=== PATIENT | female | born 1940 | race Caucasian/White ===

== ENCOUNTER 2019-06-21 21:17 | Inpatient (IN) ==
[2019-06-21] MEDS ORDERED: 0.9 % Sodium Chloride 1,000 ML IVC ONE (21:23)
[2019-06-21] MEDS ORDERED: Acetaminophen 325 MG TABLET PO ONE (21:40)
[2019-06-21 21:49] LABS: Basophils % 0.1 %; Eosinophils % 0.4 %; Hematocrit 47.2 % (35.3-44.9); Hemoglobin 15.2 g/dL (11.5-15.4); Immature Granulocytes % 0.6 % (0-4); Lymphocytes # 0.2 K/mcL (0.6-4.6); Lymphocytes % 1.7 %; Mean Corpuscular HGB Conc 32.2 g/dL (31.6-35.5); Mean Corpuscular Hemoglobin 29.3 pg (28.0-33.3); Mean Corpuscular Volume 91.1 fL (83.0-100.0); Mean Platelet Volume 9.8 fL (9.4-12.4); Monocytes # 0.3 K/mcL (0.0-1.3); Monocytes % 3.3 %; Neutrophils # 9.4 K/mcL (1.6-8.9); Platelet Count 136 K/mcL (140-400); Red Blood Count 5.18 M/mcL (3.82-4.97); Red Cell Distribution Width 13.2 % (11.5-14.5); Segmented Neutrophils % 93.9 %
[2019-06-21 21:51] LABS: Bilirubin,Urine Negative (Negative); Blood,Urine Negative (Negative); Clarity,Urine Clear (Clear); Color,Urine Yellow (Yellow); Glucose,Urine (UA) Normal (Normal); Ketones,Urine 15 mg/dL (Negative); Leukocyte Esterase,Urine Moderate (Negative); Nitrite,Urine Negative (Negative); Protein,Urine Negative (Neg-Trace); Specific Gravity,Urine 1.012 (1.010-1.025); Urobilinogen,Urine Normal (Normal)
[2019-06-21 21:52] LABS: Bacteria,Urine None Seen per hpf (None-Few); Hyaline Casts,Urine None Seen per lpf (None-Few); RBC,Urine 0-3 per hpf (0-3); Squamous Epithelial Cell,Urine Many per lpf (None-Few); WBC,Urine 30-50 per hpf (0-3)
[2019-06-21 21:53] LABS: INR 1.1; Prothrombin Time 12.9 Seconds (9.4-12.1)
[2019-06-21 21:56] LABS: Activated Partial Thrombo Time 25.4 Seconds (26.0-36.0)
[2019-06-21] MEDS ORDERED: Piperacillin/Tazobactam 3.375 GM in 0.9 % Sodium Chloride Mini Bag 100 ML IVPB ONE (22:05)
[2019-06-21 22:14] LABS: Alanine Aminotransferase 69 Units/L (7-52); Albumin 4.3 g/dL (3.5-5.7); Albumin/Globulin Ratio 1.7 (1.1-2.2); Alkaline Phosphatase 93 Units/L (34-104); Aspartate Amino Transferase 70 Units/L (13-39); BUN/Creatinine Ratio 13 (6-26); Bilirubin,Direct 0.2 mg/dL (0.0-0.2); Bilirubin,Indirect 0.7 mg/dL (0.0-1.0); Bilirubin,Total 0.9 mg/dL (0.3-1.0); Blood Urea Nitrogen 12 mg/dL (8-23); Calcium 9.6 mg/dL (8.6-10.3); Carbon Dioxide 25 mEq/L (23-29); Chloride 103 mEq/L (98-107); Globulin 2.5 g/dL (2.4-3.5); Glucose 171 mg/dL (70-105); Magnesium 1.6 mg/dL (1.6-2.6); Osmolality,Calculated 296 (280-300); Phosphorous < 1.0 mg/dL (2.7-4.5); Potassium 3.6 mEq/L (3.5-5.1); Sodium 141 mEq/L (136-145); Total Protein 6.8 g/dL (6.4-8.9); Troponin I < 0.03 ng/mL (< 0.04); eGFR For African Americans > 60 (> 60); eGFR For Non-African Americans 57 (> 60)
[2019-06-21] MEDS: 0.9 % Sodium Chloride 1,000 ML IVC SCH (22:16)
[2019-06-21 22:22] LABS: Platelet Estimate Normal (Normal)
[2019-06-21] MEDS ORDERED: cloNIDine HCL 0.1 MG TABLET PO ONE (22:31)
[2019-06-21] MEDS: atenoloL 50 MG TABLET PO SCH (22:40)
[2019-06-21] MEDS ORDERED: Furosemide 40 MG/4 ML VIAL IVP ONE (22:43)
[2019-06-21 22:48] LABS: ABG Base Excess -4 mEq/L (-2 to 3); ABG HCO3 22 mEq/L (21-27); ABG Oxygen Saturation 92 % (95-98); ABG PCO2 38 mmHg (35-45); ABG PH 7.36 pH Units (7.32-7.45); ABG PO2 65 mmHg (85-104); ABG TCO2 23 mEq/L (20-26)
[2019-06-21] MEDS ORDERED: Potassium Phosphate 44 MEQ in 0.9 % Sodium Chloride 250 ML IVPB ONE (23:14)
[2019-06-21] MEDS ORDERED: Isovue-370 500 ML BOTTLE IVP ONE ×2 (23:17→23:40)
[2019-06-22] MEDS ORDERED: *HR* Labetalol 20 MG/4 ML SYRINGE IVP ONE (00:13)
[2019-06-22] MEDS ORDERED: Naloxone 0.4 MG/ML INJ IVP PRN (00:22)
[2019-06-22] MEDS: *HR* Labetalol 20 MG/4 ML SYRINGE IVP PRN ×2 (00:39→06:00)
[2019-06-22 01:37] LABS: Basophils % 0.1 %; Eosinophils # 0.1 K/mcL (0.0-0.6); Eosinophils % 0.5 %; Hematocrit 47.6 % (35.3-44.9); Hemoglobin 15.3 g/dL (11.5-15.4); Immature Granulocytes % 0.7 % (0-4); Lymphocytes # 0.3 K/mcL (0.6-4.6); Lymphocytes % 1.9 %; Mean Corpuscular HGB Conc 32.1 g/dL (31.6-35.5); Mean Corpuscular Hemoglobin 29.1 pg (28.0-33.3); Mean Corpuscular Volume 90.5 fL (83.0-100.0); Mean Platelet Volume 9.5 fL (9.4-12.4); Monocytes # 0.6 K/mcL (0.0-1.3); Monocytes % 4.4 %; Neutrophils # 11.9 K/mcL (1.6-8.9); Platelet Count 151 K/mcL (140-400); Red Blood Count 5.26 M/mcL (3.82-4.97); Red Cell Distribution Width 13.2 % (11.5-14.5); Segmented Neutrophils % 92.4 %; White Blood Count 12.9 K/mcL (4.3-11.1)
[2019-06-22 01:38] LABS: INR 1.2; Prothrombin Time 13.6 Seconds (9.4-12.1)
[2019-06-22 01:41] LABS: Activated Partial Thrombo Time 29.3 Seconds (26.0-36.0)
[2019-06-22 01:51] LABS: Alanine Aminotransferase 73 Units/L (7-52); Albumin 4.1 g/dL (3.5-5.7); Albumin/Globulin Ratio 1.6 (1.1-2.2); Alkaline Phosphatase 78 Units/L (34-104); Aspartate Amino Transferase 79 Units/L (13-39); BUN/Creatinine Ratio 12 (6-26); Bilirubin,Total 1.1 mg/dL (0.3-1.0); Blood Urea Nitrogen 12 mg/dL (8-23); Calcium 8.8 mg/dL (8.6-10.3); Carbon Dioxide 23 mEq/L (23-29); Chloride 100 mEq/L (98-107); Chol/HDL Ratio 4.7 (0-4.9); Cholesterol 189 mg/dL (< 200); Globulin 2.5 g/dL (2.4-3.5); Glucose 200 mg/dL (70-105); HDL Cholesterol 40 mg/dL (40-59); LDL Cholesterol,Calculated 109 mg/dL (0-99); Magnesium 1.4 mg/dL (1.6-2.6); Osmolality,Calculated 289 (280-300); Phosphorous 1.5 mg/dL (2.7-4.5); Potassium 2.8 mEq/L (3.5-5.1); Sodium 137 mEq/L (136-145); Total Protein 6.6 g/dL (6.4-8.9); Triglycerides 200 mg/dL (< 150); eGFR For African Americans > 60 (> 60); eGFR For Non-African Americans 56 (> 60)
[2019-06-22 01:52] LABS: Acetaminophen < 10 mcg/mL (10-20)
[2019-06-22 02:03] LABS: Estimated Average Glucose 131 mg/dl
[2019-06-22 02:05] LABS: Thyroid Stimulating Hormone 1.013 mcIU/mL (0.340-5.600)
[2019-06-22] MEDS ORDERED: 0.9 % Sodium Chloride 1,000 ML IVC SCH (02:15)
[2019-06-22] MEDS: 0.9 % Sodium Chloride 1,000 ML IVC SCH (02:19)
[2019-06-22 03:30] LABS: Hepatitis B Surface Antigen Nonreactive (Nonreactive)
[2019-06-22 03:58] LABS: Hepatitis B Core IgM Nonreactive (Nonreactive)
[2019-06-22 03:59] LABS: Hepatitis A Antibody IgM Nonreactive (Nonreactive); Hepatitis C Virus Antibody Nonreactive (Nonreactive)
[2019-06-22 05:43] LABS: VBG HCO3 25 mEq/L (21-27); VBG PCO2 56 mmHg (41-51); VBG PH 7.27 pH Units (7.32-7.42); VBG PO2 42 mmHg (25-50)
[2019-06-22] MEDS: *HR* Heparin 5,000 UNIT/ML VIAL SQ SCH ×2 (06:01→17:54)
[2019-06-22 06:43] LABS: Phosphorous 4.6 mg/dL (2.7-4.5)
[2019-06-22 06:45] LABS: BUN/Creatinine Ratio 11 (6-26); Blood Urea Nitrogen 11 mg/dL (8-23); Carbon Dioxide 24 mEq/L (23-29); Chloride 101 mEq/L (98-107); Glucose 202 mg/dL (70-105); Osmolality,Calculated 293 (280-300); Potassium 3.6 mEq/L (3.5-5.1); Sodium 139 mEq/L (136-145); eGFR For African Americans > 60 (> 60); eGFR For Non-African Americans 53 (> 60)
[2019-06-22] MEDS: atenoloL 50 MG TABLET PO SCH ×2 (07:58→20:04)
[2019-06-22] MEDS ORDERED: Piperacillin/Tazobactam 3.375 GM in 0.9 % Sodium Chloride Mini Bag 100 ML IVPB SCH (08:00)
[2019-06-22] MEDS: 0.9 % Sodium Chloride w KCl 20 MEQ/1,000 ML MLS IVC SCH ×2 (10:17→20:25)
[2019-06-22] MEDS ORDERED: Ondansetron 4 MG/2 ML VIAL IVP SCH (12:00)
[2019-06-22] MEDS ORDERED: Ondansetron 4 MG/2 ML VIAL IVP PRN (12:32)
[2019-06-22] MEDS: cefTRIAXone 1,000 MG in Water for inj. (sterile) 10 ML IVP SCH (12:36)
[2019-06-22] MEDS: cloNIDine HCL 0.1 MG TABLET PO SCH (13:58)
[2019-06-23] MEDS: cloNIDine HCL 0.1 MG TABLET PO SCH ×2 (01:14→11:50)
[2019-06-23] MEDS ORDERED: Ibuprofen 400 MG TABLET PO ONE (01:39)
[2019-06-23 05:40] LABS: Alanine Aminotransferase 55 Units/L (7-52); Albumin 3.4 g/dL (3.5-5.7); Albumin/Globulin Ratio 1.7 (1.1-2.2); Alkaline Phosphatase 56 Units/L (34-104); Aspartate Amino Transferase 40 Units/L (13-39); BUN/Creatinine Ratio 26 (6-26); Bilirubin,Direct 0.2 mg/dL (0.0-0.2); Bilirubin,Indirect 0.5 mg/dL (0.0-1.0); Bilirubin,Total 0.7 mg/dL (0.3-1.0); Blood Urea Nitrogen 20 mg/dL (8-23); Carbon Dioxide 25 mEq/L (23-29); Chloride 108 mEq/L (98-107); Glucose 122 mg/dL (70-105); Magnesium 1.9 mg/dL (1.6-2.6); Osmolality,Calculated 292 (280-300); Sodium 139 mEq/L (136-145); Total Protein 5.4 g/dL (6.4-8.9); eGFR For African Americans > 60 (> 60); eGFR For Non-African Americans > 60 (> 60)
[2019-06-23] MEDS: *HR* Heparin 5,000 UNIT/ML VIAL SQ SCH ×2 (06:15→17:40)
[2019-06-23 07:50] LABS: Basophils % 0.1 %; Eosinophils # 0.6 K/mcL (0.0-0.6); Eosinophils % 4.4 %; Hematocrit 39.9 % (35.3-44.9); Immature Granulocytes % 0.5 % (0-4); Lymphocytes # 1.1 K/mcL (0.6-4.6); Lymphocytes % 8.7 %; Mean Corpuscular HGB Conc 31.8 g/dL (31.6-35.5); Mean Corpuscular Hemoglobin 29.5 pg (28.0-33.3); Mean Corpuscular Volume 92.8 fL (83.0-100.0); Mean Platelet Volume 10.6 fL (9.4-12.4); Monocytes # 0.7 K/mcL (0.0-1.3); Monocytes % 5.3 %; Neutrophils # 10.6 K/mcL (1.6-8.9); Platelet Count 145 K/mcL (140-400); Red Cell Distribution Width 14.4 % (11.5-14.5)
[2019-06-23 08:13] LABS: Hemoglobin 12.7 g/dL (11.5-15.4)
[2019-06-23] MEDS: 0.9 % Sodium Chloride w KCl 20 MEQ/1,000 ML MLS IVC SCH ×2 (10:01→20:41)
[2019-06-23] MEDS: cefTRIAXone 1,000 MG in Water for inj. (sterile) 10 ML IVP SCH (10:02)
[2019-06-23] MEDS: atenoloL 50 MG TABLET PO SCH ×2 (10:02→20:46)
[2019-06-23] MEDS: *HR* Labetalol 20 MG/4 ML SYRINGE IVP PRN (21:57)
[2019-06-24] MEDS: cloNIDine HCL 0.1 MG TABLET PO SCH (00:23)
[2019-06-24] MEDS ORDERED: Ibuprofen 400 MG TABLET PO ONE (00:32)
[2019-06-24] MEDS: *HR* Labetalol 20 MG/4 ML SYRINGE IVP PRN ×4 (02:00→12:42)
[2019-06-24] MEDS: Albuterol 2.5 MG/3 ML NEBULIZER IH SCH ×3 (02:03→09:58)
[2019-06-24 02:58] LABS: Basophils % 0.2 %; Eosinophils # 0.7 K/mcL (0.0-0.6); Eosinophils % 8.3 %; Hematocrit 39.2 % (35.3-44.9); Hemoglobin 12.7 g/dL (11.5-15.4); Immature Granulocytes % 0.1 % (0-4); Lymphocytes # 1.5 K/mcL (0.6-4.6); Mean Corpuscular HGB Conc 32.4 g/dL (31.6-35.5); Mean Corpuscular Hemoglobin 29.7 pg (28.0-33.3); Mean Corpuscular Volume 91.8 fL (83.0-100.0); Mean Platelet Volume 10.3 fL (9.4-12.4); Monocytes # 0.3 K/mcL (0.0-1.3); Monocytes % 4.2 %; Neutrophils # 5.6 K/mcL (1.6-8.9); Platelet Count 141 K/mcL (140-400); Red Blood Count 4.27 M/mcL (3.82-4.97); Red Cell Distribution Width 14.3 % (11.5-14.5); Segmented Neutrophils % 69.2 %; White Blood Count 8.1 K/mcL (4.3-11.1)
[2019-06-24 03:25] LABS: Alanine Aminotransferase 47 Units/L (7-52); Albumin 3.5 g/dL (3.5-5.7); Albumin/Globulin Ratio 1.5 (1.1-2.2); Alkaline Phosphatase 62 Units/L (34-104); Aspartate Amino Transferase 31 Units/L (13-39); BUN/Creatinine Ratio 25 (6-26); Bilirubin,Total 0.5 mg/dL (0.3-1.0); Blood Urea Nitrogen 16 mg/dL (8-23); Calcium 8.5 mg/dL (8.6-10.3); Carbon Dioxide 23 mEq/L (23-29); Chloride 109 mEq/L (98-107); Globulin 2.3 g/dL (2.4-3.5); Glucose 114 mg/dL (70-105); Osmolality,Calculated 292 (280-300); Potassium 3.7 mEq/L (3.5-5.1); Sodium 140 mEq/L (136-145); Total Protein 5.8 g/dL (6.4-8.9); eGFR For African Americans > 60 (> 60); eGFR For Non-African Americans > 60 (> 60)
[2019-06-24] MEDS: *HR* Heparin 5,000 UNIT/ML VIAL SQ SCH (06:03)
[2019-06-24] MEDS: atenoloL 50 MG TABLET PO SCH (06:06)
[2019-06-24] MEDS: cefTRIAXone 1,000 MG in Water for inj. (sterile) 10 ML IVP SCH (08:06)
[2019-06-24] MEDS ORDERED: Lactobacillus 1 EACH CAP.SPRINK PO SCH (09:00)
[2019-06-24] MEDS ORDERED: amLODIPine 5 MG TABLET PO SCH (09:00)
[2019-06-24 10:41] VITALS: BP 172/84
[2019-06-24] MEDS ORDERED: Vancomycin Oral Soln 125 MG/2.5 ML UDC PO SCH (13:00)
[2019-06-24] MEDS ORDERED: cloNIDine HCL 0.1 MG TABLET PO SCH (15:00)
[2019-06-25] MEDS ORDERED: cephALEXin 500 MG CAPSULE PO SCH (09:00)
== END 2019-06-24 14:03 | disposition home health service (06) | DRG 872 ==
LOC: EMEROOARM 21:17 → 2ANU 21:17 → SUATTDRO 06-22 20:47
PROVIDERS: ADMIT Internal Medicine; ATTEND Internal Medicine

== ENCOUNTER 2021-01-28 14:40 | Inpatient (IN) ==
[2021-01-28] MEDS ORDERED: *HR* HYDROmorphone (PF) 1 MG/ML SYRINGE IVP ONE (14:57)
[2021-01-28] MEDS ORDERED: Ondansetron 4 MG/2 ML VIAL IVP ONE ×2 (14:57→18:14)
[2021-01-28 15:21] LABS: Basophils % 0.5 %; Eosinophils # 0.1 K/mcL (0.0-0.6); Eosinophils % 2.1 %; Hematocrit 44.6 % (35.3-44.9); Hemoglobin 14.7 g/dL (11.5-15.4); Immature Granulocytes % 0.7 % (0-4); Lymphocytes # 2.6 K/mcL (0.6-4.6); Lymphocytes % 45.2 %; Mean Corpuscular Hemoglobin 29.6 pg (28.0-33.3); Mean Corpuscular Volume 89.7 fL (83.0-100.0); Mean Platelet Volume 9.8 fL (9.4-12.4); Monocytes # 0.4 K/mcL (0.0-1.3); Monocytes % 6.5 %; Neutrophils # 2.6 K/mcL (1.6-8.9); Platelet Count 180 K/mcL (140-400); Red Blood Count 4.97 M/mcL (3.82-4.97); Red Cell Distribution Width 13.2 % (11.5-14.5); White Blood Count 5.8 K/mcL (4.3-11.1)
[2021-01-28 15:30] LABS: INR 1.1; Prothrombin Time 12.6 Seconds (9.4-12.1)
[2021-01-28 15:32] LABS: Activated Partial Thrombo Time 32.5 Seconds (26.0-36.0); BUN/Creatinine Ratio 11 (6-26); Blood Urea Nitrogen 9 mg/dL (8-23); Calcium 9.8 mg/dL (8.6-10.3); Carbon Dioxide 28 mEq/L (23-29); Chloride 103 mEq/L (98-107); Glucose 107 mg/dL (70-105); Osmolality,Calculated 293 (280-300); Potassium 3.2 mEq/L (3.5-5.1); Sodium 142 mEq/L (136-145); eGFR For African Americans > 60 (> 60); eGFR For Non-African Americans > 60 (> 60)
[2021-01-28] MEDS ORDERED: *HR* FentaNYL (PF) 100 MCG/2 ML VIAL IVP ONE ×2 (16:23→17:15)
[2021-01-28] MEDS ORDERED: diazePAM 10 MG/2 ML SYRINGE IVP ONE (17:15)
[2021-01-28] MEDS ORDERED: Ondansetron 4 MG/2 ML VIAL ONE (18:12)
[2021-01-28] MEDS ORDERED: Ondansetron 4 MG/2 ML VIAL IVP PRN (18:38)
[2021-01-28] MEDS ORDERED: Acetaminophen 325 MG TABLET PO PRN (18:38)
[2021-01-28] MEDS ORDERED: Naloxone 0.4 MG/ML INJ IVP PRN (18:38)
[2021-01-28] MEDS ORDERED: Dextrose Gel 15 GM/37.5 ML TUBE PO PRN ×2 (18:45)
[2021-01-28] MEDS ORDERED: D5% in Water 1,000 ML IVC PRN (18:45)
[2021-01-28] MEDS ORDERED: *HR* Dextrose 50 % in Water (Syg) 50 ML SYRINGE IVP PRN (18:45)
[2021-01-28] MEDS ORDERED: *HR* HYDROmorphone (PF) 1 MG/ML SYRINGE IVP PRN ×2 (18:52→23:36)
[2021-01-28] MEDS ORDERED: *HR* OxyCODONE Immed Rel 5 MG TABLET PO ONE (20:31)
[2021-01-28] MEDS ORDERED: Insulin LISPRO 300 UNITS/3 ML VIAL SUBQ SCH (21:00)
[2021-01-28] MEDS ORDERED: *HR* Labetalol 20 MG/4 ML SYRINGE IVP ONE (22:10)
[2021-01-28] MEDS: atenoloL 50 MG TABLET PO SCH (23:46)
[2021-01-28] MEDS: cloNIDine HCL 0.1 MG TABLET PO SCH (23:46)
[2021-01-29 00:45] LABS: Influenza A PCR Negative (Negative); Influenza B PCR Negative (Negative); Resp. Syncytial Virus PCR Negative (Negative); SARS-CoV-2 by PCR (In House) Negative (Negative)
[2021-01-29] MEDS ORDERED: *HR* Labetalol 20 MG/4 ML SYRINGE IVP ONE ×3 (02:00→17:11)
[2021-01-29 05:03] LABS: Basophils % 0.2 %; Hematocrit 45.2 % (35.3-44.9); Hemoglobin 14.9 g/dL (11.5-15.4); Immature Granulocytes % 0.3 % (0-4); Lymphocytes # 1.1 K/mcL (0.6-4.6); Lymphocytes % 8.8 %; Mean Corpuscular Hemoglobin 29.9 pg (28.0-33.3); Mean Corpuscular Volume 90.6 fL (83.0-100.0); Monocytes # 0.9 K/mcL (0.0-1.3); Monocytes % 7.1 %; Neutrophils # 10.5 K/mcL (1.6-8.9); Platelet Count 212 K/mcL (140-400); Red Blood Count 4.99 M/mcL (3.82-4.97); Red Cell Distribution Width 13.4 % (11.5-14.5); Segmented Neutrophils % 83.6 %
[2021-01-29 05:05] LABS: White Blood Count 12.5 K/mcL (4.3-11.1)
[2021-01-29 05:06] LABS: INR 1.2; Prothrombin Time 13.7 Seconds (9.4-12.1)
[2021-01-29] MEDS: *HR* Heparin 5,000 UNIT/ML VIAL SQ SCH ×3 (05:15→21:55)
[2021-01-29 05:25] LABS: BUN/Creatinine Ratio 12 (6-26); Blood Urea Nitrogen 10 mg/dL (8-23); Calcium 9.7 mg/dL (8.6-10.3); Carbon Dioxide 27 mEq/L (23-29); Chloride 99 mEq/L (98-107); Glucose 178 mg/dL (70-105); Magnesium 2.2 mg/dL (1.6-2.6); Osmolality,Calculated 293 (280-300); Potassium 4.3 mEq/L (3.5-5.1); Sodium 140 mEq/L (136-145); eGFR For African Americans > 60 (> 60); eGFR For Non-African Americans > 60 (> 60)
[2021-01-29] MEDS ORDERED: Insulin LISPRO 300 UNITS/3 ML VIAL SUBQ SCH (07:30)
[2021-01-29] MEDS: cloNIDine HCL 0.1 MG TABLET PO SCH ×3 (08:04→19:43)
[2021-01-29] MEDS: atenoloL 50 MG TABLET PO SCH ×2 (08:04→19:43)
[2021-01-29] MEDS ORDERED: Heparin 1,000 UNITS/500 mL 500 ML ONE (08:43)
[2021-01-29] MEDS ORDERED: amLODIPine 5 MG TABLET PO SCH (09:00)
[2021-01-29 09:35] LABS: Bilirubin,Urine Negative (Negative); Blood,Urine Negative (Negative); Clarity,Urine Clear (Clear); Color,Urine Yellow (Yellow); Glucose,Urine (UA) 100 mg/dL (Normal); Ketones,Urine 20 mg/dL (Negative); Leukocyte Esterase,Urine Negative (Negative); Nitrite,Urine Negative (Negative); PH,Urine 6.5 pH Units (5.0-8.0); Protein,Urine 70 mg/dL (Neg-Trace); RBC,Urine 0-3 per hpf (0-3); Specific Gravity,Urine 1.025 (1.010-1.025); Squamous Epithelial Cell,Urine Few per hpf (None-Few); Urobilinogen,Urine Normal (Normal); WBC,Urine 0-3 per hpf (0-3)
[2021-01-29] MEDS ORDERED: *HR* FentaNYL (PF) 100 MCG/2 ML VIAL ONE (09:55)
[2021-01-29] MEDS ORDERED: *HR* Propofol 200 MG/20 ML VIAL IVP ONE (09:55)
[2021-01-29] MEDS ORDERED: *HR* Succinylcholine 200 MG/10 ML VIAL IVP ONE (09:58)
[2021-01-29] MEDS ORDERED: Ondansetron 4 MG/2 ML VIAL ONE (09:58)
[2021-01-29] MEDS ORDERED: ceFAZolin 2,000 MG in Water for inj. (sterile) 20 ML IVP ONE ×2 (10:15→15:15)
[2021-01-29] MEDS ORDERED: Albumin Human 5% 25.0 GM/500 ML IV.SOLN ONE (10:21)
[2021-01-29] MEDS ORDERED: *HR* Phenylephrine 10 MG/ML VIAL ONE (10:24)
[2021-01-29] MEDS ORDERED: Albuterol 2.5 MG/3 ML NEBULIZER ONE (12:05)
[2021-01-29] MEDS ORDERED: *HR* HYDROmorphone PF 0.5 MG/0.5 ML SYRINGE IVP PRN ×2 (12:06→17:11)
[2021-01-29] MEDS ORDERED: *HR* OxyCODONE Immed Rel 5 MG TABLET PO PRN ×2 (12:06→17:11)
[2021-01-29] MEDS ORDERED: Albuterol 2.5 MG/3 ML NEBULIZER IH ONE (12:06)
[2021-01-29] MEDS ORDERED: *HR* Labetalol 20 MG/4 ML SYRINGE IVP PRN ×2 (12:07→17:11)
[2021-01-29] MEDS ORDERED: Ringers Solution, Lactated 1,000 ML IVC SCH (12:15)
[2021-01-29] MEDS ORDERED: Naloxone 0.4 MG/ML INJ IVP PRN (17:11)
[2021-01-29] MEDS ORDERED: Dextrose Gel 15 GM/37.5 ML TUBE PO PRN ×2 (17:11)
[2021-01-29] MEDS ORDERED: *HR* HYDROmorphone (PF) 1 MG/ML SYRINGE IVP PRN (17:11)
[2021-01-29] MEDS ORDERED: D5% in Water 1,000 ML IVC PRN (17:11)
[2021-01-29] MEDS ORDERED: Ondansetron 4 MG/2 ML VIAL IVP PRN (17:11)
[2021-01-29] MEDS ORDERED: *HR* Dextrose 50 % in Water (Syg) 50 ML SYRINGE IVP PRN (17:11)
[2021-01-29] MEDS: Ringers Solution, Lactated 1,000 ML IVC SCH (19:44)
[2021-01-29] MEDS: Insulin LISPRO 300 UNITS/3 ML VIAL SUBQ SCH (19:44)
[2021-01-29] MEDS: Acetaminophen 325 MG TABLET PO PRN (19:56)
[2021-01-29] MEDS ORDERED: CLONIDINE HCL 0.2 MG PO SCH (21:00)
[2021-01-29] MEDS: CeFAZolin 2 GM/120 ML BAG IVPB SCH (23:23)
[2021-01-30 05:35] LABS: Basophils % 0.3 %; Eosinophils % 0.3 %; Hematocrit 31.6 % (35.3-44.9); Immature Granulocytes % 0.2 % (0-4); Lymphocytes # 1.9 K/mcL (0.6-4.6); Lymphocytes % 17.9 %; Mean Corpuscular HGB Conc 32.9 g/dL (31.6-35.5); Mean Corpuscular Hemoglobin 30.3 pg (28.0-33.3); Mean Corpuscular Volume 92.1 fL (83.0-100.0); Mean Platelet Volume 10.4 fL (9.4-12.4); Monocytes # 1.2 K/mcL (0.0-1.3); Monocytes % 11.7 %; Neutrophils # 7.3 K/mcL (1.6-8.9); Platelet Count 157 K/mcL (140-400); Red Blood Count 3.43 M/mcL (3.82-4.97); Red Cell Distribution Width 13.9 % (11.5-14.5); Segmented Neutrophils % 69.6 %; White Blood Count 10.5 K/mcL (4.3-11.1)
[2021-01-30 05:36] LABS: Hemoglobin 10.4 g/dL (11.5-15.4)
[2021-01-30 05:51] LABS: BUN/Creatinine Ratio 19 (6-26); Blood Urea Nitrogen 18 mg/dL (8-23); Calcium 9.1 mg/dL (8.6-10.3); Carbon Dioxide 29 mEq/L (23-29); Chloride 104 mEq/L (98-107); Glucose 118 mg/dL (70-105); Osmolality,Calculated 291 (280-300); Potassium 3.8 mEq/L (3.5-5.1); Sodium 139 mEq/L (136-145); eGFR For African Americans > 60 (> 60); eGFR For Non-African Americans 58 (> 60)
[2021-01-30] MEDS: *HR* Heparin 5,000 UNIT/ML VIAL SQ SCH ×3 (06:15→23:24)
[2021-01-30] MEDS: CeFAZolin 2 GM/120 ML BAG IVPB SCH (08:33)
[2021-01-30] MEDS ORDERED: amLODIPine 5 MG TABLET PO SCH (09:00)
[2021-01-30] MEDS: Insulin LISPRO 300 UNITS/3 ML VIAL SUBQ SCH ×4 (10:39→19:52)
[2021-01-30] MEDS: cloNIDine HCL 0.1 MG TABLET PO SCH ×3 (10:39→19:52)
[2021-01-30] MEDS: Lactobacillus 1 EACH CAP.SPRINK PO SCH (10:40)
[2021-01-30] MEDS: atenoloL 50 MG TABLET PO SCH ×2 (10:40→19:51)
[2021-01-30] MEDS: Ringers Solution, Lactated 1,000 ML IVC SCH (18:42)
[2021-01-30] MEDS: Acetaminophen 325 MG TABLET PO PRN (19:51)
[2021-01-31 07:18] LABS: Basophils # 0.1 K/mcL (0.0-0.2); Basophils % 0.6 %; Eosinophils # 0.3 K/mcL (0.0-0.6); Eosinophils % 3.9 %; Hematocrit 30.1 % (35.3-44.9); Hemoglobin 9.8 g/dL (11.5-15.4); Immature Granulocytes % 0.3 % (0-4); Lymphocytes # 1.9 K/mcL (0.6-4.6); Mean Corpuscular HGB Conc 32.6 g/dL (31.6-35.5); Mean Corpuscular Hemoglobin 30.5 pg (28.0-33.3); Mean Corpuscular Volume 93.8 fL (83.0-100.0); Mean Platelet Volume 10.2 fL (9.4-12.4); Monocytes # 0.9 K/mcL (0.0-1.3); Monocytes % 11.2 %; Neutrophils # 4.6 K/mcL (1.6-8.9); Platelet Count 148 K/mcL (140-400); Red Blood Count 3.21 M/mcL (3.82-4.97); Red Cell Distribution Width 13.9 % (11.5-14.5); White Blood Count 7.7 K/mcL (4.3-11.1)
[2021-01-31 07:35] LABS: BUN/Creatinine Ratio 28 (6-26); Blood Urea Nitrogen 20 mg/dL (8-23); Calcium 8.7 mg/dL (8.6-10.3); Carbon Dioxide 29 mEq/L (23-29); Chloride 105 mEq/L (98-107); Glucose 128 mg/dL (70-105); Osmolality,Calculated 294 (280-300); Potassium 3.6 mEq/L (3.5-5.1); Sodium 140 mEq/L (136-145); eGFR For African Americans > 60 (> 60); eGFR For Non-African Americans > 60 (> 60)
[2021-01-31] MEDS: atenoloL 50 MG TABLET PO SCH ×2 (11:27→21:09)
[2021-01-31] MEDS: Lactobacillus 1 EACH CAP.SPRINK PO SCH (11:27)
[2021-01-31] MEDS: Insulin LISPRO 300 UNITS/3 ML VIAL SUBQ SCH ×4 (11:28→20:18)
[2021-01-31] MEDS: amLODIPine 5 MG TABLET PO SCH (11:28)
[2021-01-31] MEDS: cloNIDine HCL 0.1 MG TABLET PO SCH ×4 (11:28→21:09)
[2021-01-31] MEDS: *HR* Heparin 5,000 UNIT/ML VIAL SQ SCH ×3 (12:18→21:09)
[2021-01-31] MEDS: Acetaminophen 325 MG TABLET PO PRN ×2 (14:38→21:08)
[2021-01-31] MEDS: *HR* HYDROcodone/Acet 5/325 mg TABLET PO PRN (21:13)
[2021-02-01] MEDS: *HR* OxyCODONE Immed Rel 5 MG TABLET PO PRN (05:33)
[2021-02-01] MEDS: *HR* Heparin 5,000 UNIT/ML VIAL SQ SCH ×3 (05:33→22:45)
[2021-02-01 06:31] LABS: BUN/Creatinine Ratio 26 (6-26); Blood Urea Nitrogen 17 mg/dL (8-23); Calcium 8.9 mg/dL (8.6-10.3); Carbon Dioxide 30 mEq/L (23-29); Chloride 105 mEq/L (98-107); Glucose 114 mg/dL (70-105); Magnesium 2.2 mg/dL (1.6-2.6); Osmolality,Calculated 292 (280-300); Phosphorous 2.7 mg/dL (2.7-4.5); Potassium 3.7 mEq/L (3.5-5.1); Sodium 140 mEq/L (136-145); eGFR For African Americans > 60 (> 60); eGFR For Non-African Americans > 60 (> 60)
[2021-02-01] MEDS: amLODIPine 5 MG TABLET PO SCH (08:44)
[2021-02-01] MEDS: atenoloL 50 MG TABLET PO SCH ×2 (08:44→19:41)
[2021-02-01] MEDS: cloNIDine HCL 0.1 MG TABLET PO SCH ×3 (08:44→19:41)
[2021-02-01] MEDS: Lactobacillus 1 EACH CAP.SPRINK PO SCH (08:44)
[2021-02-01] MEDS: Insulin LISPRO 300 UNITS/3 ML VIAL SUBQ SCH ×4 (08:44→22:02)
[2021-02-01] MEDS: *HR* HYDROcodone/Acet 5/325 mg TABLET PO PRN ×2 (09:49→19:42)
[2021-02-01] MEDS: Ringers Solution, Lactated 1,000 ML IVC SCH (09:50)
[2021-02-01 13:30] LABS: Basophils # 0.1 K/mcL (0.0-0.2); Basophils % 0.6 %; Eosinophils # 0.4 K/mcL (0.0-0.6); Eosinophils % 4.2 %; Hematocrit 34.7 % (35.3-44.9); Hemoglobin 10.9 g/dL (11.5-15.4); Immature Granulocytes % 0.3 % (0-4); Lymphocytes # 2.2 K/mcL (0.6-4.6); Lymphocytes % 22.4 %; Mean Corpuscular HGB Conc 31.4 g/dL (31.6-35.5); Mean Corpuscular Hemoglobin 29.8 pg (28.0-33.3); Mean Corpuscular Volume 94.8 fL (83.0-100.0); Mean Platelet Volume 10.4 fL (9.4-12.4); Monocytes # 1.3 K/mcL (0.0-1.3); Monocytes % 12.8 %; Neutrophils # 5.9 K/mcL (1.6-8.9); Platelet Count 185 K/mcL (140-400); Red Blood Count 3.66 M/mcL (3.82-4.97); Red Cell Distribution Width 13.9 % (11.5-14.5); Segmented Neutrophils % 59.7 %
[2021-02-01 13:38] LABS: White Blood Count 9.8 K/mcL (4.3-11.1)
[2021-02-01] MEDS ORDERED: Sennosides/Docusate Sodium TABLET PO PRN (20:46)
[2021-02-02 03:18] LABS: Basophils # 0.1 K/mcL (0.0-0.2); Basophils % 0.7 %; Eosinophils # 0.3 K/mcL (0.0-0.6); Eosinophils % 4.3 %; Hematocrit 31.9 % (35.3-44.9); Hemoglobin 10.2 g/dL (11.5-15.4); Immature Granulocytes % 0.3 % (0-4); Lymphocytes # 2.3 K/mcL (0.6-4.6); Lymphocytes % 31.7 %; Mean Corpuscular Hemoglobin 29.7 pg (28.0-33.3); Mean Platelet Volume 10.1 fL (9.4-12.4); Monocytes # 0.8 K/mcL (0.0-1.3); Monocytes % 11.4 %; Neutrophils # 3.8 K/mcL (1.6-8.9); Platelet Count 177 K/mcL (140-400); Red Blood Count 3.43 M/mcL (3.82-4.97); Red Cell Distribution Width 13.7 % (11.5-14.5); Segmented Neutrophils % 51.6 %; White Blood Count 7.3 K/mcL (4.3-11.1)
[2021-02-02 03:34] LABS: BUN/Creatinine Ratio 33 (6-26); Blood Urea Nitrogen 17 mg/dL (8-23); Calcium 8.7 mg/dL (8.6-10.3); Carbon Dioxide 29 mEq/L (23-29); Chloride 103 mEq/L (98-107); Glucose 116 mg/dL (70-105); Osmolality,Calculated 293 (280-300); Potassium 3.6 mEq/L (3.5-5.1); Sodium 140 mEq/L (136-145); eGFR For African Americans > 60 (> 60); eGFR For Non-African Americans > 60 (> 60)
[2021-02-02] MEDS: *HR* HYDROcodone/Acet 5/325 mg TABLET PO PRN (06:18)
[2021-02-02] MEDS: *HR* Heparin 5,000 UNIT/ML VIAL SQ SCH ×3 (06:18→21:27)
[2021-02-02] MEDS: amLODIPine 5 MG TABLET PO SCH (10:44)
[2021-02-02] MEDS: atenoloL 50 MG TABLET PO SCH ×2 (10:44→21:26)
[2021-02-02] MEDS: cloNIDine HCL 0.1 MG TABLET PO SCH ×3 (10:44→21:27)
[2021-02-02] MEDS: Lactobacillus 1 EACH CAP.SPRINK PO SCH (10:44)
[2021-02-02] MEDS: Insulin LISPRO 300 UNITS/3 ML VIAL SUBQ SCH ×4 (10:45→21:27)
[2021-02-02] MEDS: *HR* OxyCODONE Immed Rel 5 MG TABLET PO PRN (21:26)
[2021-02-03] MEDS: Ringers Solution, Lactated 1,000 ML IVC SCH (00:45)
[2021-02-03 05:19] LABS: Hematocrit 30.7 % (35.3-44.9); Hemoglobin 9.6 g/dL (11.5-15.4); Mean Corpuscular HGB Conc 31.3 g/dL (31.6-35.5); Mean Corpuscular Hemoglobin 29.3 pg (28.0-33.3); Mean Corpuscular Volume 93.6 fL (83.0-100.0); Mean Platelet Volume 10.4 fL (9.4-12.4); Platelet Count 196 K/mcL (140-400); Red Blood Count 3.28 M/mcL (3.82-4.97); Red Cell Distribution Width 13.5 % (11.5-14.5); White Blood Count 6.3 K/mcL (4.3-11.1)
[2021-02-03 05:41] LABS: BUN/Creatinine Ratio 25 (6-26); Blood Urea Nitrogen 15 mg/dL (8-23); Calcium 8.8 mg/dL (8.6-10.3); Carbon Dioxide 30 mEq/L (23-29); Chloride 103 mEq/L (98-107); Glucose 125 mg/dL (70-105); Osmolality,Calculated 292 (280-300); Potassium 3.6 mEq/L (3.5-5.1); Sodium 140 mEq/L (136-145); eGFR For African Americans > 60 (> 60); eGFR For Non-African Americans > 60 (> 60)
[2021-02-03] MEDS: *HR* Heparin 5,000 UNIT/ML VIAL SQ SCH ×3 (05:44→20:59)
[2021-02-03] MEDS: Insulin LISPRO 300 UNITS/3 ML VIAL SUBQ SCH (09:06)
[2021-02-03] MEDS: amLODIPine 5 MG TABLET PO SCH (09:12)
[2021-02-03] MEDS: cloNIDine HCL 0.1 MG TABLET PO SCH ×3 (09:13→20:58)
[2021-02-03] MEDS: atenoloL 50 MG TABLET PO SCH ×2 (09:13→20:59)
[2021-02-03] MEDS: Lactobacillus 1 EACH CAP.SPRINK PO SCH (09:13)
[2021-02-03] MEDS: *HR* OxyCODONE Immed Rel 5 MG TABLET PO PRN (10:41)
[2021-02-04 05:34] LABS: Hematocrit 29.2 % (35.3-44.9); Hemoglobin 9.6 g/dL (11.5-15.4); Mean Corpuscular HGB Conc 32.9 g/dL (31.6-35.5); Mean Corpuscular Hemoglobin 30.2 pg (28.0-33.3); Mean Corpuscular Volume 91.8 fL (83.0-100.0); Mean Platelet Volume 10.6 fL (9.4-12.4); Platelet Count 209 K/mcL (140-400); Red Blood Count 3.18 M/mcL (3.82-4.97); Red Cell Distribution Width 13.5 % (11.5-14.5); White Blood Count 6.3 K/mcL (4.3-11.1)
[2021-02-04] MEDS: *HR* Heparin 5,000 UNIT/ML VIAL SQ SCH (05:43)
[2021-02-04 05:46] LABS: BUN/Creatinine Ratio 27 (6-26); Blood Urea Nitrogen 15 mg/dL (8-23); Calcium 8.7 mg/dL (8.6-10.3); Carbon Dioxide 30 mEq/L (23-29); Chloride 103 mEq/L (98-107); Glucose 117 mg/dL (70-105); Osmolality,Calculated 292 (280-300); Potassium 3.5 mEq/L (3.5-5.1); Sodium 140 mEq/L (136-145); eGFR For African Americans > 60 (> 60); eGFR For Non-African Americans > 60 (> 60)
[2021-02-04 07:02] VITALS: BP 152/79; PULSE 72; TEMP 98.9; O2SAT 95
[2021-02-04] MEDS: amLODIPine 5 MG TABLET PO SCH (09:01)
[2021-02-04] MEDS: Lactobacillus 1 EACH CAP.SPRINK PO SCH (09:01)
[2021-02-04] MEDS: atenoloL 50 MG TABLET PO SCH (09:01)
[2021-02-04] MEDS: cloNIDine HCL 0.1 MG TABLET PO SCH (09:01)
== END 2021-02-04 10:20 | DRG 480 ==
LOC: SUATTDRO → EMEROOARM 14:40 → 3NENU 21:00 → SUATTDRO 21:00 → 3NENU 23:00 → 4WAOSI 01-29 13:31
PROVIDERS: ADMIT Family Medicine; ATTEND Internal Medicine